=== PATIENT | male | born 1995 | race Caucasian/White ===

== ENCOUNTER 2024-10-01 09:03 | Day surgery (SDC) | payer BC, OTHER ==
[~2024-10-01 09:03] MED LIST: Midazolam 1 MG/ML 2 ML SDV ONE; Propofol 200 MG/20 ML SDV ONE; fentaNYL 100 MCG/2 ML SDV ONE
[2024-10-01] MEDS ORDERED: Lactated Ringers 1,000 ML IV ONE (09:04)
[2024-10-01] MEDS ORDERED: Midazolam 1 MG/ML 2 ML SDV ONE (12:03)
[2024-10-01] MEDS ORDERED: propofoL 500 MG/50 ML 50 ML ONE ×2 (12:03→13:09)
[2024-10-01] MEDS ORDERED: fentaNYL 100 MCG/2 ML SDV ONE (12:03)
[2024-10-01] MEDS ORDERED: ePHEDrine 50 MG/ML SDV ONE (12:59)
[2024-10-01] MEDS ORDERED: EPINEPHrine 1 MG/ML SDV ONE (13:06)
[2024-10-01] MEDS: Lidocaine 1% with EPINEPHrine 1:100,000 20 ML MDV ONE (13:48)
== END 2024-10-01 15:32 | disposition home or self-care (01) ==
LOC: JD.SDS 09:03
PROVIDERS: ATTEND Surgery
DX: M79.5 Residual foreign body in soft tissue (principal); Z91.09 Other allergy status, other than to drugs and biological substances
CPT/HCPCS: 24201; A9270; J0171; J0665; J0690; J2004; J2250; J2704; J3010; J7120; 01710; J2003; J3490